=== PATIENT | male | born 1985 | race Caucasian/White ===

== ENCOUNTER 2023-11-06 00:35 | Emergency (ER) | payer OTHER, SELFPAY ==
[2023-11-06 00:40] VITALS: BP 127/87
--- NOTE | 2023-11-06 01:04 | ED.GENMED ---
History of Present Illness
General
Chief Complaint: Sleep Disturbances
Source: patient
Exam Limitations: none
Time Seen by Provider: 11/06/23 00:49
Travel History
Have you had any contact with someone who has COVID-19?: No
Do you have any symptoms of coronavirus? Fever > 100 degrees, chills, cough, shortness of breath, sore throat, loss of taste or smell, muscle aches, or headache?: No
History of Present Illness
History of Present Illness:
This is a 38 year old male that comes in with c/o not being able to sleep. States that he is homeless and he has been living in his car. States that he is afraid that he is going to have heat stroke as it is so hot. States that this has been going
on for 8 days. States that he has a dull headache and is dizzy. States that he was hoping to speak with case management to help him with is Situation. Denies any fever,chills, chest pain, SOB, abd pain, nausea, vomiting, diarrhea, urinary burning.
Past History
Past History
ED Past Medical History: COPD and Other (Right ventricular outflow tract tachycardia, MIgraines, )
ED Past Surgical History: None
Social History
Tobacco: Smoker
Alcohol: None
Drug: Marijuana and Other (Opiates (currently on methadone maintenance))
Personal: Single
Living: homeless
Employment: Not employed
Review of Systems
Review of Systems
All Other Systems: ROS reviewed and negative except as documented in HPI and ROS
Constitutional: Reports no symptoms; Denies fever or chills
EENT: Reports no symptoms
Respiratory: Reports no symptoms; Denies cough or trouble breathing
Cardiac: Reports no symptoms; Denies chest pain
ABD/GI: Reports no symptoms; Denies abdominal pain, nausea, vomiting or diarrhea
: Reports no symptoms; Denies dysuria, frequency or urgency
Musculoskeletal: Reports no symptoms
Skin: Reports no symptoms
Neurological: Reports dizzy and headache (Dull headache)
Psychiatric: Reports no symptoms
Phy Exam
General Physical Exam
General Presentation: well appearing and no apparent distress
General age: appears stated age
General Skin: warm and dry
General Habitus: normal
General Mental: alert
General Hydration: appears well hydrated
ENT Exam
ENT Exam: TM's normal, pharynx normal and neck supple
Eye Exam
Eye Exam: EOMI
Cardiovascular Exam
Cardiovascular Exam: regular rate/rhythm, no edema and normal peripheral pulses
Pulmonary Exam
Pulmonary Exam: lungs clear, no respiratory distress, no rales, chest non tender, no crackles, no rhonchi, no wheezing and no cough
Gastrointestinal Exam
Gastrointestinal Exam: normal bowel sounds, non tender, soft, no organomegaly, no pulsatile mass and non distended
Musculoskeletal Exam
Musculoskeletal Exam: full ROM and no edema
Skin Exam
Skin Exam: normal color, warm/dry, no rash and no petechia
Psychiatric Exam
Psychiatric Exam: normal mood/affect
Course
Vital Signs
Initial and Last Documented VS:
Initial Vital Signs
Temp Pulse Resp BP Pulse Ox
98.9 F 85 14 127/87 97
11/06/23 00:40 11/06/23 00:40 11/06/23 00:40 11/06/23 00:40 11/06/23 00:40
Last Documented Vital Signs
Temp Pulse Resp BP Pulse Ox
98.9 F 85 14 127/87 97
11/06/23 00:40 11/06/23 00:40 11/06/23 00:40 11/06/23 00:40 11/06/23 00:40
MDM/Problems Addressed
Differential Diagnosis Includes:
Homeless
MDM/Problems Addressed:
This is a 38 year old male that comes in with c/o not being able to sleep for the past 8 days. States that he is homeless and has been sleeping in his car. States that he was hoping to speak with Case Management to help him with his situation.
Spoke with the charge nurse. Will have patient sleep in the waiting room in a lounge chair and put in an order for case management in the morning. Patient refused this and said that he was just going to go back to his car as he had to lay flat to
sleep. Patient walked out.
Chronic conditions affecting care:
NA
Acute Exacerbation and/or Progression of Chronic Illness:
NA
*Pulse Oximetry
Patient hypoxic: no
*EKG
Interpreted by ED Provider?: NA
Rate: EKG- N/A
*Airframe Technical Officer Interpretation
Rate: Airframe Technical Officer- N/A
*Critical Care Note
Total Time (30-74mins, 75-104mins- exclusive of procedures): Not Applicable
ED Attending Note
-
Portions of this chart may have been created with voice recognition software.� Occasional wrong word or��sound alike� substitutions may have occurred due to the inherent limitations of voice recognition software.
Discharge Plan
Departure
Patient Disposition: Home (Routine Discharge)
Date of Disposition: 11/06/23
Time of Disposition: 01:13
Patient with high blood pressure during this ER visit?: No
Condition: Good
Covid-19: Not Applicable
Discharge Problem:
Homeless
Prescriptions:
No Action
methadone 10 mg/mL Concentrate
60 mg PO DAILY
Patient Comments:
12/25/22- COMFIRM DOSE WITH CLINIC -[phone], FAX [phone]
Rx Instructions:
12/24/2022, tried to reach out to [facility] and all of the nurses left at 12:30 PM, we will have to call back tomorrow, , patient has the medication with him
methadone 10 mg/mL Concentrate
25 mg PO HS
Patient Comments:
- TALKED TO [facility] AND COMFIRM DOSING
Rx Instructions:
12/24/2022, tried to reach out to [facility] and all of the nurses left at 12:30 PM, we will have to call back tomorrow, , patient has the medication with him
doxycycline hyclate 100 mg Capsule
100 mg PO Q12 Qty: 56 0RF
Activity Restrictions/Additional Instructions:
Patient left without discharge instruction.
Interventions
Interventions:
*General Assessment Last Done: 11/06/23 00:40
*Neglect/Abuse Screening Last Done: 11/06/23 00:40
ED- Fall Risk Assessment Last Done: 11/06/23 00:40
*ED COVID-19 Vaccine History Last Done: 11/06/23 00:40
Discharge Date and Time
Print Language: TANZANIAN
== END 2023-11-06 01:39 | disposition home or self-care (01) ==
LOC: EMR 00:35
PROVIDERS: EMERGENCY PHYSICIAN Emergency Medicine
DX: R51.9 Headache, unspecified (principal); R42 Dizziness and giddiness; Z59.02 Unsheltered homelessness; J44.9 Chronic obstructive pulmonary disease, unspecified; F17.200 Nicotine dependence, unspecified, uncomplicated; F15.11 Other stimulant abuse, in remission; F11.20 Opioid dependence, uncomplicated; Z88.8 Allergy status to other drugs, medicaments and biological substances
CPT/HCPCS: 99281

== ENCOUNTER 2023-11-12 14:24 | Emergency (ER) | payer OTHER, SELFPAY ==
[2023-11-12 14:26] VITALS: BP 155/90
[2023-11-12 16:10] VITALS: BMI 28.6
[2023-11-12 16:13] VITALS: BP 122/85
[2023-11-12 16:43] LABS: % Basophils 0.5 % (0-2); % Eosinophils 0.5 % (0-6); % Immature Granulocytes 0.2 % (0-0.5); % Lymphocytes 26.9 % (20.5-51.1); % Monocytes 6.4 % (1.7-9.3); % Neutrophils 65.5 % (42.2-75.2); Absolute Lymphocytes 2.3 10^3/uL (1.2-3.4); Absolute Monocytes 0.6 10^3/uL (0.1-0.6); Absolute Neutrophils 5.6 10^3/uL (1.4-6.5); Hematocrit 46.1 % (39.0-52.0); Hemoglobin 15.8 g/dL (13.0-18.0); Mean Corp Hgb Conc. 34.3 g/dL (33.0-37.0); Mean Corpuscular Hgb 29.4 pg (27.0-31.0); Mean Corpuscular Volume 85.8 fL (80.0-94.0); Mean Platelet Volume 9.8 fL (7.4-10.4); Nucleated Red Blood Cells % 0 % (-); Platelet Count 225 10^3/uL (130-400); Red Blood Cell Count 5.37 10^6/uL (4.70-6.10); White Blood Cell Count 8.6 10^3/uL (4.8-10.8)
[2023-11-12 17:00] VITALS: BP 119/78
[2023-11-12 17:14] LABS: Blood Urea Nitrogen 17 mg/dl (9-20); Calcium 9.6 mg/dl (8.4-10.2); Carbon Dioxide 27 mmol/L (22-30); Chloride 104 mmol/L (98-107); Estimated Creatinine Clearance 109 ml/min; Glucose 94 mg/dl (70-99); Sodium 139 mmol/L (135-145); eGFR > 60.00
[2023-11-12 18:00] VITALS: BP 114/75
[2023-11-12 19:00] VITALS: BP 132/80
--- NOTE | 2023-11-12 19:10 | ED.GENMED ---
History of Present Illness
General
Chief Complaint: Eye Problems
Source: patient
Exam Limitations: none
Time Seen by Provider: 11/12/23 15:05
Travel History
Have you had any contact with someone who has COVID-19?: No
Do you have any symptoms of coronavirus? Fever > 100 degrees, chills, cough, shortness of breath, sore throat, loss of taste or smell, muscle aches, or headache?: No
History of Present Illness
History of Present Illness:
38-year-old male who presents with continued issues with scintillating scotomas. Patient states occurs every day. Has been ongoing for some time. 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
Lyme carditis. He did get a full treatment of antibiotics. Patient states that sometimes he cannot speak as numbness and tingling in his extremities when this occurs. It has been occurring every day. He recently has not been sleeping well as he
has been sleeping in his car. He has seen neurology in the past and there was concern for migraines. Patient states that he has not been following up with them recently. He was kicked out of his house and is living in his car. No chest pain
DiEnna. No fevers. No seizure-like activity. Patient states he is not suicidal but has been really depressed because of all this.
Past History
Past History
ED Past Medical History: COPD and Other (Right ventricular outflow tract tachycardia, MIgraines, Lyme carditis)
ED Past Surgical History: None
Social History
Tobacco: Smoker
Alcohol: None
Drug: Marijuana and Other (Opiates (currently on methadone maintenance))
Personal: Single
Living: homeless
Employment: Not employed
Phy Exam
Physical Exam
Physical Exam:
CONSTITUTIONAL Patient alert and oriented to person, place and time. Well-appearing. Vital signs reviewed.
HEAD atraumatic, normocephalic.
EYES eyelids normal to inspection, Pupils equally round and reactive to light, Extraocular muscles intact, Conjunctiva normal, Sclera normal.
NECK normal range of motion, Trachea midline, no jugular venous distention.
RESPIRATORY CHEST No respiratory distress noted, Chest expansion equal, Bilateral breath sounds clear.
CARDIOVASCULAR regular rate and rhythm, Heart sounds normal.
ABDOMEN abdomen nontender, Bowel sounds normal. No distention.
BACK normal inspection, no obvious deformities
UPPER EXTREMITY range of motion normal, Motor strength normal, no cyanosis, no edema.
LOWER EXTREMITY range of motion normal, Motor strength normal, no cyanosis, no edema.
NEURO Speech normal, No focal motor deficits, [place] coma scale 15, Memory normal, Cranial Nerves intact to screening exam. No pronator drift.
SKIN skin warm, dry, and normal in color.
PSYCHIATRIC patient oriented to person place and time, Normal affect.
Course
Orders/Labs/Results
Orders:
Orders
11/12/23 15:35
CT Head W/o Iv Contrast Urgent
Comment:
Reason For Exam: vision changes, off/on L sided numbness
11/12/23 15:36
Crisis Consult Urgent
Reason for Consult: depression
11/12/23 16:24
Basic Metabolic Panel Urgent
Complete Blood Count/With Diff Urgent
11/12/23 16:33
Case Management Consult ONCE
Case Management Consult: Discharge Planning
11/12/23 19:08
Amitriptyline [Elavil] 10 mg PO NOW STA
11/12/23 16:24
11/12/23 16:24
Vital Signs
Initial and Last Documented VS:
Initial Vital Signs
Temp Pulse Resp BP Pulse Ox
98.3 F 83 20 155/90 99
11/12/23 14:26 11/12/23 14:26 11/12/23 14:26 11/12/23 14:26 11/12/23 14:26
Last Documented Vital Signs
Temp Pulse Resp BP Pulse Ox
98.3 F 71 13 114/75 98
11/12/23 14:26 11/12/23 18:15 11/12/23 18:15 11/12/23 18:00 11/12/23 18:15
MDM/Problems Addressed
MDM/Problems Addressed:
Acephalic migraine, scintillating scotoma
*Radiology
Radiology exam reviewed: preliminary read by ED provider and radiology read reviewed
*Pulse Oximetry
Patient hypoxic: no
*Critical Care Note
Total Time (30-74mins, 75-104mins- exclusive of procedures): Not Applicable
Data Reviewed
Review of Other/Old Records Reveals: Progress Notes (Cardiology progress note show history of heart block.) and Discharge Summary
Further Testing Considered But Not Given:
Consider CTA but no concern for dissection or aneurysm
Patient Management
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
Escalation/DeEscalation of care consider admission/obs:
Case discussed with neurology. Neurology question acephalgic migraines. She recommends amitriptyline 10 mg nightly. She also recommends outpatient follow-up with them in clinic which I agree with. Patient is well-appearing and symptoms are
ongoing for several years. Also seen by crisis and given information. Okay for discharge and outpatient follow-up
ED Attending Note
-
Portions of this chart may have been created with voice recognition software.� Occasional wrong word or��sound alike� substitutions may have occurred due to the inherent limitations of voice recognition software.
Discharge Plan
Departure
Patient Disposition: Home (Routine Discharge)
Date of Disposition: 11/12/23
Time of Disposition: 19:15
Patient with high blood pressure during this ER visit?: No
Discharge Problem:
Scintillating scotoma, Acephalgic migraine
Instructions: Migraine in adults
Prescriptions:
New
amitriptyline 10 mg tablet
10 mg PO HS Qty: 30 0RF
No Action
methadone 10 mg/mL Concentrate
60 mg PO DAILY
Patient Comments:
12/25/22- COMFIRM DOSE WITH CLINIC -[phone], FAX [phone]
Rx Instructions:
12/24/2022, tried to reach out to [facility] and all of the nurses left at 12:30 PM, we will have to call back tomorrow, , patient has the medication with him
methadone 10 mg/mL Concentrate
25 mg PO HS
Patient Comments:
- TALKED TO [facility] AND COMFIRM DOSING
Rx Instructions:
12/24/2022, tried to reach out to [facility] and all of the nurses left at 12:30 PM, we will have to call back tomorrow, , patient has the medication with him
doxycycline hyclate 100 mg Capsule
100 mg PO Q12 Qty: 56 0RF
Referrals:
[facility]
Phani Toure DO [Family Provider] -
Jerrica Ramírez DO [Active] -
Activity Restrictions/Additional Instructions:
Please follow-up with the free clinic in the next 1 to 2 weeks. Please also follow-up with neurology as discussed. Return immediately for suicidal thoughts, weakness of any kind, worsening symptoms, fevers or any other concerns.
Interventions
Interventions:
*Risk Screen - Suicide Last Done: 11/12/23 14:26
*General Assessment Last Done: 11/12/23 14:26
*Neglect/Abuse Screening Last Done: 11/12/23 14:26
ED- Fall Risk Assessment Last Done: 11/12/23 16:10
*ED COVID-19 Vaccine History Last Done: 11/12/23 16:10
Discharge Date and Time
Print Language: ROMANSH
[2023-11-12] MEDS: TORADOL 30 MG IV (19:52)
[2023-11-12] MEDS: ELAVIL 10 MG PO (20:14)
[2023-11-12 20:26] VITALS: BP 141/85
== END 2023-11-12 20:49 | disposition home or self-care (01) ==
LOC: EMR 14:24
PROVIDERS: EMERGENCY PHYSICIAN Emergency Medicine; FAMILY PHYSICIAN Family Medicine
DX: G43.909 Migraine, unspecified, not intractable, without status migrainosus (principal); H53.129 Transient visual loss, unspecified eye; J44.9 Chronic obstructive pulmonary disease, unspecified; R00.0 Tachycardia, unspecified; I51.89 Other ill-defined heart diseases; F32.A Depression, unspecified; Z59.02 Unsheltered homelessness
CPT/HCPCS: 99284; 96374; 70450; 80048; 85025

== ENCOUNTER 2023-11-16 17:15 | Emergency (ER) | payer OTHER, SELFPAY ==
--- NOTE | 2023-11-16 19:01 | ED.GENMED ---
History of Present Illness
General
Chief Complaint: Anxiety
Source: patient
Exam Limitations: none
Time Seen by Provider: 11/16/23 17:25
Nursing documentation reviewed up to this point in time: agreed with
Travel History
Have you had any contact with someone who has COVID-19?: No
Do you have any symptoms of coronavirus? Fever > 100 degrees, chills, cough, shortness of breath, sore throat, loss of taste or smell, muscle aches, or headache?: No
History of Present Illness
History of Present Illness:
Patient to ED with complaint of 'blindness and hallucinations'. States he was seen in ED 2 days ago with same complaint. He was started on amytryptolline without improvement. States he wants to . [place] and talked to
a doctor about euthanasia. States he feels everyone at home is staring at him so he ran out of the house and came here.
Past History
Past History
ED Past Medical History: COPD and Other (Right ventricular outflow tract tachycardia, MIgraines, Lyme carditis)
ED Past Surgical History: None
Social History
Tobacco: Smoker
Alcohol: None
Drug: Marijuana and Other (Opiates (currently on methadone maintenance))
Personal: Single
Living: homeless
Employment: Not employed
Review of Systems
Review of Systems
Allergies reviewed?: Yes
All Other Systems: ROS reviewed and negative except as documented in HPI and ROS
Constitutional: Reports no symptoms
EENT: Reports no symptoms
Respiratory: Reports no symptoms
Cardiac: Reports no symptoms
ABD/GI: Reports no symptoms
: Reports no symptoms
Musculoskeletal: Reports no symptoms
Skin: Reports no symptoms
Neurological: Reports no symptoms
Psychiatric: Reports anxiety and hallucinations
Phy Exam
General Physical Exam
General Presentation: well appearing and no apparent distress
General age: appears stated age
General Skin: warm and dry
General Habitus: normal
Pulmonary Exam
Pulmonary Exam: no respiratory distress
Gastrointestinal Exam
Gastrointestinal Exam: non tender and soft
Neurological Exam
Neurological Exam: alert, oriented x3 and CN II-XII intact
[place] Coma Scale
Eye Opening: Spontaneous
Verbal Response: Oriented
Motor Response: Obeys Commands
GCS Total Score: 15
Musculoskeletal Exam
Musculoskeletal Exam: full ROM and neuro vasc intact
Skin Exam
Skin Exam: normal color, warm/dry and no rash
Psychiatric Exam
Psychiatric Exam: anxious
Course
Orders/Labs/Results
Orders:
Orders
11/16/23 18:42
Crisis Consult Urgent
Reason for Consult: suicidal thoughts
11/16/23 19:43
Ketorolac [Toradol] 30 mg IM NOW STA
Vital Signs
Initial and Last Documented VS:
Initial Vital Signs
Temp Pulse Resp Pulse Ox
97.9 F 117 20 99
11/16/23 17:16 11/16/23 17:16 11/16/23 17:16 11/16/23 17:16
Last Documented Vital Signs
Temp Pulse Resp BP Pulse Ox
97.9 F 108 20 131/74 99
11/16/23 17:16 11/16/23 20:00 11/16/23 20:00 11/16/23 20:00 11/16/23 20:00
*Critical Care Note
Total Time (30-74mins, 75-104mins- exclusive of procedures): Not Applicable
Update Note
Update Note:
Patient seen by crisis. He has denied to crisis any SI, HI. Crisis recommends outpatient follow up with psychiatrist and pateint agreed to this. No further intervention required.
ED Attending Note
-
Portions of this chart may have been created with voice recognition software.� Occasional wrong word or��sound alike� substitutions may have occurred due to the inherent limitations of voice recognition software.
Discharge Plan
Departure
Patient Disposition: Home (Routine Discharge)
Date of Disposition: 11/16/23
Time of Disposition: 19:44
Patient with high blood pressure during this ER visit?: No
Condition: Good
Covid-19: Not Applicable
Discharge Problem:
Scintillating scotoma of both eyes
Instructions: Migraine in adults
Prescriptions:
No Action
methadone 10 mg/mL Concentrate
60 mg PO DAILY
Patient Comments:
12/25/22- COMFIRM DOSE WITH CLINIC -[phone], FAX [phone]
Rx Instructions:
12/24/2022, tried to reach out to [facility] and all of the nurses left at 12:30 PM, we will have to call back tomorrow, , patient has the medication with him
methadone 10 mg/mL Concentrate
25 mg PO HS
Patient Comments:
- TALKED TO [facility] AND COMFIRM DOSING
Rx Instructions:
12/24/2022, tried to reach out to [facility] and all of the nurses left at 12:30 PM, we will have to call back tomorrow, , patient has the medication with him
doxycycline hyclate 100 mg Capsule
100 mg PO Q12 Qty: 56 0RF
amitriptyline 10 mg tablet
10 mg PO HS Qty: 30 0RF
indomethacin 50 mg capsule
50 mg PO TID PRN (Reason: pain) Qty: 30 0RF
Referrals:
Phani Toure, DO [Family Provider] - Tomorrow
Interventions
Interventions:
*Risk Screen - Suicide Last Done: 11/16/23 17:27
*General Assessment Last Done: 11/16/23 17:27
*Neglect/Abuse Screening Last Done: 11/16/23 17:27
ED- Fall Risk Assessment Last Done: 11/16/23 17:27
*Nursing Disposition Last Done: 11/16/23 20:01
ED-Psychological Assessment Last Done: 11/16/23 17:27
Discharge Date and Time
Discharge Date/Time: 11/16/23 21:23
Print Language: UGANDAN
[2023-11-16 20:00] VITALS: BP 131/74
== END 2023-11-16 21:23 | disposition home or self-care (01) ==
LOC: EMR 17:15
PROVIDERS: EMERGENCY PHYSICIAN Emergency Medicine; FAMILY PHYSICIAN Family Medicine
DX: H53.123 Transient visual loss, bilateral (principal); R45.851 Suicidal ideations; R44.3 Hallucinations, unspecified; F41.9 Anxiety disorder, unspecified; F17.200 Nicotine dependence, unspecified, uncomplicated; J44.9 Chronic obstructive pulmonary disease, unspecified; G43.909 Migraine, unspecified, not intractable, without status migrainosus; F11.21 Opioid dependence, in remission; Z59.00 Homelessness unspecified; Z88.8 Allergy status to other drugs, medicaments and biological substances
CPT/HCPCS: 99282